=== PATIENT | male | born 1995 | race Caucasian/White ===

== ENCOUNTER 2023-05-09 09:25 | Emergency (ER) | payer OTHER ==
[2023-05-09] MEDS ORDERED: CEFAZOLIN SODIUM 1 GM/VIAL ONE (09:51)
[2023-05-09] MEDS ORDERED: WATER FOR INJ,STERILE 10 ML ONE (09:51)
--- NOTE | 2023-05-09 10:30 | ER ---
Nurse's Notes [facility] Name: Nestor Weston II Age: 27 yrs Sex: Male : 1995 Arrival Date: 05/09/2023 Time: 09:25 Bed 5 Private MD: Diagnosis: Laceration without foreign body of scalp;Concussion without loss of consciousness Presentation: 05/09 09:27 Chief complaint: Patient states: fell back into a door last night around 6:30 pm , iw large laceration to back of head , dressing in place, no bleeding. Coronavirus screen: At this time, the client does not indicate any symptoms associated with coronavirus-19. Ebola Screen: Patient negative for fever greater than or equal to 101.5 degrees Fahrenheit, and additional compatible Ebola Virus Disease symptoms Patient denies exposure to infectious person. Patient denies travel to an Ebola-affected area in the 21 days before illness onset. No symptoms or risks identified at this time. Initial Sepsis Screen: Does the patient meet any 2 criteria? No. Patient's initial sepsis screen is negative. Does the patient have a suspected source of infection? No. Patient's initial sepsis screen is negative. Risk Assessment: Do you want to hurt yourself or someone else? Patient reports no desire to harm self or others. Onset of symptoms was May 08, 2023. 09:27 Method Of Arrival: Ambulatory iw 09:27 Acuity: ALISON 4 iw 09:30 Complicating Factors: There are no complicating factors for this patient. iw Historical: - Allergies: 09:31 No Known Allergies; iw - Home Meds: 09:31 None [Active]; iw - PMHx: 09:31 None; iw - PSHx: 09:31 brain tumore removed; iw - Immunization history:: Last tetanus immunization: up to date. - Social history:: Smoking status: . Screenin:53 [facility] ED Fall Risk Assessment (Adult) Score/Fall Risk Level 0 - 2 = Low Risk. Abuse iw screen: Denies threats or abuse. Denies injuries from another. Abuse screen: Denies threats or abuse. Nutritional screening: No deficits noted. Tuberculosis screening: No symptoms or risk factors identified. Assessment: 09:52 General: Appears in no apparent distress. Behavior is calm, cooperative. Pain: iw Complains of pain in occipital area. Neuro: Level of Consciousness is awake, alert, obeys commands, Oriented to person, place, time, situation, Moves all extremities. Full function. Cardiovascular: Patient's skin is warm and dry. Respiratory: Respiratory effort is even, unlabored, Respiratory pattern is regular. Musculoskeletal: Range of motion: intact in all extremities. Injury Description: Laceration sustained to occipital area is 7.6 to 20 cm long, not bleeding, was sustained 12-24 hours ago. Vital Signs: 09:30 BP 125 / 93; Pulse 75; Resp 16; Temp 98.4; Pulse Ox 99% on R/A; Weight 74.84 kg; Height iw 5 ft. 11 in. ; Pain 12/06; 09:30 Body Mass Index 23.01 (74.84 kg, 180.34 cm) iw 09:30 Pain Scale: Adult iw ED Course: 09:27 Patient arrived in ED. iw 09:29 Wicho Richards DO is Attending Physician. ms3 09:29 [facility] sb4 09:30 Triage completed. iw 09:32 Arm band placed on. iw 09:46 Rupali Peguero, RN is Primary Nurse. iw Administered Medications: 09:46 Drug: CeFAZolin IM 1 grams IM once Route: IM; Site: right gluteus; iw 10:51 Drug: Acetaminophen PO 1000 mg PO once Route: PO; iw 10:51 Drug: Ibuprofen PO 600 mg PO once Route: PO; iw Outcome: 10:28 Discharge ordered by . sb4 10:51 Patient left the ED. iw Signatures: Rupali Peguero RN RN iw Wicho Richards DO DO ms3 Kim Riley PA-C PA-C sb4
--- NOTE | 2023-05-09 10:30 | EDPHYS ---
Physician Documentation [facility] Name: Nestor Weston II Age: 27 yrs Sex: Male : 1995 Arrival Date: 05/09/2023 Time: 09:25 Bed 5 Private MD: ED Physician Wicho Richards HPI: 05/09 09:40 This 27 yrs old Male presents to ER via Ambulatory with complaints of Laceration To sb4 Head. 09:40 The patient has a laceration. Patient is an inmate who states that he tripped and fell sb4 back and hit his head on the door which had a piece of metal sticking out. This occurred over 12 hours ago. He states that he initially felt dizzy but did not lose consciousness. He reports that he cleaned the wound when it initially occurred. he is up-to-date on his tetanus shot. Historical: - Allergies: 09: No Known Allergies; iw - Home Meds: :31 None [Active]; iw - PMHx: :31 None; iw - PSHx: 09:31 brain tumore removed; iw - Immunization history:: Last tetanus immunization: up to date. - Social history:: Smoking status: . ROS: 09:40 Constitutional: Negative for fever, chills, and weight loss, sb4 09:40 Skin: Positive for laceration(s), Exam: 09:40 Constitutional: This is a well developed, well nourished patient who is awake, alert, sb4 and in no acute distress. Eyes: Extra-ocular motions intact. Periorbital areas with no swelling, redness, or edema. ENT: Mucous membranes moist. Cardiovascular: Regular rate and rhythm with a normal S1 and S2. Respiratory: Lungs have equal breath sounds bilaterally, clear to auscultation and percussion. No rales, rhonchi or wheezes noted. No increased work of breathing, no retractions or nasal flaring. Abdomen/GI: Soft, non-tender, no distension. MS/ Extremity: Pulses equal, no cyanosis. Neurovascular intact. Full, normal range of motion. Neuro: Awake and alert, GCS 15, oriented to person, place, time, and situation. Motor strength 5/5 in all extremities. Sensory grossly intact. 09:40 Head/face: Noted is abrasion(s), that are mild, ecchymosis, that is mild, 09:40 Skin: injury, laceration(s), the wound is approximately 7 cm(s), with a depth of 1 cm(s), of the occipital area, that can be described as clean, no foreign body, linear, without bleeding, Vital Signs: 09:30 BP 125 / 93; Pulse 75; Resp 16; Temp 98.4; Pulse Ox 99% on R/A; Weight 74.84 kg; Height iw 5 ft. 11 in. ; Pain 5/10; 09:30 Body Mass Index 23.01 (74.84 kg, 180.34 cm) iw 09:30 Pain Scale: Adult iw Laceration: 10:29 Wound Repair of 7cm ( 2.8in ) subcutaneous laceration to occipital area. Distal sb4 neuro/vascular/tendon intact. Wound prep: Extensive cleansing with betadine by nurse, Wound irrigation with saline by nurse, Copious irrigation. Skin closed with 8 Leigh Ann using staple gun. Patient tolerated well. MDM: 09:29 Patient medically screened. ms3 09:40 Differential diagnosis: superficial laceration, tendon injury, vascular injury. sb4 10:29 Data reviewed: vital signs, nurses notes, and as a result, I will discharge patient. sb4 Test considered but Not performed: CT: not indicated. no loc. no vomiting. no excessive bleeding. not on blood thinners. Counseling: I had a detailed discussion with the patient and/or guardian regarding the historical points, exam findings, and any diagnostic results supporting the discharge/admit diagnosis, to return to the emergency department if symptoms worsen or persist or if there are any questions or concerns that arise at home. 05/09 09:35 Order name: Wound Care; Complete Time: 10:33 sb4 05/09 10:28 Order name: Wound dressing; Complete Time: :33 sb4 Administered Medications: 09:46 Drug: CeFAZolin IM 1 grams IM once Route: IM; Site: right gluteus; iw 10:51 Drug: Acetaminophen PO 1000 mg PO once Route: PO; iw 10:51 Drug: Ibuprofen PO 600 mg PO once Route: PO; iw Disposition: 09:42 PA/INSPECTOR POISING's history reviewed, patient interviewed, and examined. HPI: 27-year-old male ms3 presents from custodial status post slip and fall with laceration of the posterior scalp. Patient states his tetanus is up-to-date. My personal exam of patient reveals: On exam patient alert and orient x4, no apparent distress, nontoxic-appearing. Patient ambulatory in the emergency department. Heart rate and rhythm regular without murmurs rubs or gallops. Lungs clear to auscultation bilaterally. Patient with 7 cm posterior scalp laceration that is hemostatic at this time I agree with assessment and care plan and confirm the diagnosis (es) above. Disposition Summary: 05/09/23 10:28 Discharge Ordered Notes: Location: Home sb4 Problem: new sb4 Symptoms: have improved sb4 Condition: Stable sb4 Diagnosis - Laceration without foreign body of scalp sb4 - Concussion without loss of consciousness sb4 Followup: sb4 - With: Emergency Department - When: As needed - Reason: Trouble breathing, Worsening of condition Discharge Instructions: - Discharge Summary Sheet sb4 - Concussion, Adult, [id number] sb4 - Sutures, Leigh Ann, or Adhesive Wound Closure, [id number] sb4 Forms: - Medication Reconciliation Form sb4 - Thank You Letter sb4 - Antibiotic Education sb4 - Prescription Opioid Use sb4 - Patient Portal Instructions sb4 - Leadership Thank You Letter sb4 Prescriptions: - Bactrim DS 800-160 mg Oral Tablet - take 1 tablet ORAL route every 12 hours for 7 days; 14 tablet; Refills: 0, sb4 Product Selection Permitted Signatures: Rupali Peguero, RN RN iw Wicho Richards DO DO ms3 Kim Riley, JED ADKINS sb4
[2023-05-09] MEDS ORDERED: ACETAMINOPHEN 500 MG TAB ONE (10:49)
[2023-05-09] MEDS ORDERED: IBUPROFEN 200 MG TAB PO ONE (10:49)
[2023-05-09 11:10] VITALS: BP 125/93; TEMP 98.4; O2SAT 99
== END 2023-05-09 10:51 | disposition home or self-care (01) ==
LOC: ER 09:25
PROC: 0HQ0XZZ Repair Scalp Skin, External Approach (ICD-10-PCS; principal; 2023-05-09)
DX: S01.01XA Laceration without foreign body of scalp, initial encounter (principal); S06.0X0A Concussion without loss of consciousness, initial encounter
CPT/HCPCS: 12002; J0690